=== PATIENT | male | born 1980 | race Caucasian/White ===

== ENCOUNTER 2023-09-08 12:59 | Emergency (ER) | payer MEDICAID, OTHER ==
[~2023-09-08] VITALS: Ht 190.5 cm; Wt 113.6 kg
[2023-09-08 13:09] VITALS: BP 128/75; RESP 18; O2SAT 100
[2023-09-08 13:12] VITALS: PULSE 58
== END 2023-09-08 19:31 | disposition home or self-care (01) ==
LOC: ER 12:59 → EDBD 12:59 → ER 19:31
DX: J98.01 Acute bronchospasm (principal); R07.89 Other chest pain; Z59.00 Homelessness unspecified
CPT/HCPCS: 71045; 93005